=== PATIENT | female | born 1935 | race Caucasian/White ===

== ENCOUNTER 2017-01-01 09:39 | Inpatient (IN) | payer MEDICARE, OTHER ==
[~2017-01-01] VITALS: Ht 154.9 cm; Wt 71.8 kg
[~2017-01-01 09:39] MED LIST: ACET-2744 PO; ALEN70TA48 PO; AMLO-512 PO; ASPI-1093 PO; ATOR40TA28 PO; BACL10TA PO; CALC1TAB15 PO; DULO30CA2 PO; FURO40I IM; GABA-531 PO; HYDR25TA PO; ISOS60TA4 PO; LOSA100T8 PO; NITR0.4T27 SL; TYL3 PO
[2017-01-01] MEDS ORDERED: 0.9% SODIUM CHLORIDE 10 ML SYRINGE IVP PRN (11:00)
[2017-01-01] MEDS ORDERED: ACET-2247 PO (11:01)
[2017-01-01 11:09] LABS: BASOPHILS % (AUTO) 0.2 % (0.0-2.0); EOSINOPHILS % (AUTO) 0.5 % (1.0-6.0); HEMATOCRIT 42.8 % (36-46); HEMOGLOBIN 14.2 g/dL (12.0-16.0); LYMPHOCYTES # (AUTO) 0.8 K/uL (1.0-4.8); MEAN CORPUSCULAR HEMOGLOBIN 31.4 pg (26.0-34.0); MEAN CORPUSCULAR HGB CONC 33.2 G/dL (31.0-37.0); MEAN CORPUSCULAR VOLUME 95 fL (80-100); MONOCYTES # (AUTO) 0.8 K/uL (0.1-1.0); MONOCYTES % (AUTO) 12.9 % (2.0-9.0); NEUTROPHILS # (AUTO) 4.8 K/uL (1.8-7.7); NEUTROPHILS % (AUTO) 74.4 % (40.0-70.0); PLATELET COUNT (AUTO) 191 K/uL (150-450); RED BLOOD CELL COUNT(AUTO) 4.53 MIL/uL (4.00-5.20); RED CELL DISTRIBUTION WIDTH 13.4 % (11.5-14.5); WHITE BLOOD COUNT (AUTO) 6.4 K/uL (4.5-11.0)
[2017-01-01 11:23] LABS: CALCIUM, TOTAL 10.1 mg/dL (8.8-10.5); CREATININE 0.91 mg/dL (0.60-1.30); POTASSIUM 3.2 mmol/L (3.5-5.1)
[2017-01-01 11:24] LABS: PROTHROMBIN TIME 10.8 SEC (9.4-11.6)
[2017-01-01 11:31] LABS: ALBUMIN 3.7 g/dL (3.4-5.0); BILIRUBIN,TOTAL 0.6 mg/dL (0.1-1.0); TOTAL PROTEIN, SERUM 7.6 g/dL (6.4-8.2)
[2017-01-01 11:34] LABS: LACTIC ACID 1.1 mmol/L (0.4-2.0)
[2017-01-01 13:05] LABS: INFLUENZA TYPE B NEGATIVE FOR TYPE B (NEGATIVE)
[2017-01-01] MEDS ORDERED: ACETAMINOPHEN 1000 MG/ISO-OSM 100 ML IV ONE (13:15)
[2017-01-01 13:27] LABS: APPEARANCE,URINE CLOUDY (CLEAR); GLUCOSE, URINE (UA) NEGATIVE (NEGATIVE); KETONES,URINE NEGATIVE (NEGATIVE); LEUKOCYTE ESTERASE ,URINE TRACE (NEGATIVE); OCCULT BLOOD,URINE TRACE (NEGATIVE); PROTEIN,URINE TRACE (NEGATIVE)
[2017-01-01 13:43] LABS: ADD UA MICROSCOPIC YES
[2017-01-01 13:50] LABS: RBC,URINE 0-2 /HPF (0-2)
[2017-01-01] MEDS ORDERED: MAGNESIUM HYDROXIDE SUSPENSION 30 ML UDCUP PO PRN (16:30)
[2017-01-01] MEDS ORDERED: POTASSIUM CHL 10 MEQ/WATER 50 ML IV PRN (16:30)
[2017-01-01] MEDS ORDERED: POTASSIUM CHLORIDE 20 MEQ ER TABLET PO PRN (16:30)
[2017-01-01] MEDS ORDERED: ACETAMINOPHEN 325 MG TABLET PO PRN (16:30)
[2017-01-01] MEDS: CefTRIAXone 1 GM/DEXTROSE 50 ML IV SCH (17:40)
[2017-01-01] MEDS: OxyCODONE HCL/ACETAMINOPHEN 5-325 MG TABLET PO PRN (17:40)
[2017-01-01 18:12] VITALS: BP 124/50
[2017-01-01 20:03] VITALS: BP 110/53
[2017-01-01] MEDS: SIMVASTATIN 20 MG TABLET PO SCH (20:39)
[2017-01-01] MEDS: DOCUSATE SODIUM 100 MG CAPSULE PO SCH (20:39)
[2017-01-01] MEDS: HEPARIN SODIUM,PORCINE 5,000 UNITS/ML VIAL SQ SCH (23:18)
[2017-01-01 23:35] VITALS: BP 90/39
[2017-01-02 00:19] VITALS: BP 102/54
[2017-01-02 04:23] VITALS: BP 119/60
[2017-01-02] MEDS: ASPIRIN 81 MG CHEWABLE TABLET PO SCH (08:05)
[2017-01-02] MEDS: HEPARIN SODIUM,PORCINE 5,000 UNITS/ML VIAL SQ SCH ×3 (08:05→23:30)
[2017-01-02] MEDS: PANTOPRAZOLE SODIUM 40 MG DR TABLET PO SCH (08:06)
[2017-01-02] MEDS: DOCUSATE SODIUM 100 MG CAPSULE PO SCH ×2 (08:06→20:24)
[2017-01-02 08:24] VITALS: BP 131/58
[2017-01-02 11:18] VITALS: BP 120/58
[2017-01-02] MEDS: OxyCODONE HCL/ACETAMINOPHEN 5-325 MG TABLET PO PRN ×2 (12:11→17:17)
[2017-01-02 16:01] VITALS: BP 121/61
[2017-01-02] MEDS ORDERED: SODIUM CHLORIDE 0.9% 100 ML ONE (16:24)
[2017-01-02] MEDS: CefTRIAXone 1 GM/DEXTROSE 50 ML IV SCH (17:01)
[2017-01-02 19:44] VITALS: BP 111/58
[2017-01-02] MEDS: SIMVASTATIN 20 MG TABLET PO SCH (20:24)
[2017-01-03 00:25] VITALS: BP 139/63
[2017-01-03 04:15] VITALS: BP 110/69
[2017-01-03 07:09] VITALS: BP 128/66
[2017-01-03] MEDS: HEPARIN SODIUM,PORCINE 5,000 UNITS/ML VIAL SQ SCH ×2 (08:09→16:46)
[2017-01-03] MEDS: PANTOPRAZOLE SODIUM 40 MG DR TABLET PO SCH (08:09)
[2017-01-03] MEDS: ASPIRIN 81 MG CHEWABLE TABLET PO SCH (08:09)
[2017-01-03] MEDS: OxyCODONE HCL/ACETAMINOPHEN 5-325 MG TABLET PO PRN (08:09)
[2017-01-03] MEDS: DOCUSATE SODIUM 100 MG CAPSULE PO SCH (08:09)
[2017-01-03 10:43] VITALS: BP 120/57
[2017-01-03 15:08] VITALS: BP 129/62
[2017-01-03] MEDS ORDERED: PHEN-853 PO (15:12)
[2017-01-03] MEDS ORDERED: LEVO500 PO (15:12)
[2017-01-03] MEDS: CefTRIAXone 1 GM/DEXTROSE 50 ML IV SCH (17:24)
== END 2017-01-03 18:55 | disposition home or self-care (01) | DRG 690 ==
LOC: EMS 09:43 → 5N 16:33
PROVIDERS: ADMIT Internal Medicine; ATTEND Internal Medicine
DX: N39.0 Urinary tract infection, site not specified (principal); I25.10 Atherosclerotic heart disease of native coronary artery without angina pectoris; M19.90 Unspecified osteoarthritis, unspecified site; M81.0 Age-related osteoporosis without current pathological fracture; I11.9 Hypertensive heart disease without heart failure; Z96.659 Presence of unspecified artificial knee joint; Z79.899 Other long term (current) drug therapy; Z79.82 Long term (current) use of aspirin; Z95.1 Presence of aortocoronary bypass graft
CPT/HCPCS: 70450; 83605; 84132; 87086; 87804; 93005; 96365; 99285; J0131; J0696; J1644; J7050

== ENCOUNTER → 2017-03-21 | Outpatient (CLI) | payer MEDICARE, OTHER ==
[~2017-03-21] VITALS: Ht 144.8 cm; Wt 72.0 kg
[~2017-03-21] MED LIST changes: +ACET-2247 PO; -ACET-2744 PO; +LEVO500 PO; +PHEN-853 PO
[2017-03-21 14:48] VITALS: BP 113/51
== END | disposition home or self-care (01) ==
LOC: SRCNTR 14:30
PROVIDERS: ATTEND Internal Medicine Cardiovascular Disease
DX: I10 Essential (primary) hypertension (principal); I25.10 Atherosclerotic heart disease of native coronary artery without angina pectoris; M54.5 Low back pain; E11.65 Type 2 diabetes mellitus with hyperglycemia; M19.90 Unspecified osteoarthritis, unspecified site; E78.5 Hyperlipidemia, unspecified; M48.8X6 Other specified spondylopathies, lumbar region; Z95.1 Presence of aortocoronary bypass graft
CPT/HCPCS: G0463

== ENCOUNTER → 2017-06-20 | Outpatient (CLI) | payer MEDICARE, OTHER ==
[~2017-06-20] VITALS: Ht 144.8 cm; Wt 72.0 kg
[~2017-06-20] MED LIST changes: -DULO30CA2 PO; -LEVO500 PO; -PHEN-853 PO
[2017-06-20 14:08] VITALS: BP 134/65
== END | disposition home or self-care (01) ==
LOC: SRCNTR 14:01
PROVIDERS: ATTEND Internal Medicine Cardiovascular Disease
DX: J44.9 Chronic obstructive pulmonary disease, unspecified (principal); E11.9 Type 2 diabetes mellitus without complications; E78.5 Hyperlipidemia, unspecified; G47.30 Sleep apnea, unspecified; M19.90 Unspecified osteoarthritis, unspecified site; I10 Essential (primary) hypertension; I25.10 Atherosclerotic heart disease of native coronary artery without angina pectoris; Z79.82 Long term (current) use of aspirin; Z95.1 Presence of aortocoronary bypass graft
CPT/HCPCS: G0463

== ENCOUNTER → 2017-08-22 | Outpatient (CLI) | payer MEDICARE, OTHER ==
[~2017-08-22] VITALS: Ht 144.8 cm; Wt 74.0 kg
[~2017-08-22] MED LIST changes: +AMOX1TAB15 PO; -ASPI-1093 PO; +ASPI-1182 PO; +DULO30CA2 PO; +FAMO20 PO; +FLUT110HFA IH; +FLUTICASONE; +FURO40 PO; +HYDR-3290 PO; +LEVO500 PO; +LOSA100T2 PO; -LOSA100T8 PO; +METO-296 PO; +MONT10TA21 PO; -NITR0.4T27 SL; +NITR0.4T50 SL; +PRAM0.258 PO; +PRED10 PO
[2017-08-22 15:02] VITALS: BP 163/76
== END | disposition home or self-care (01) ==
LOC: SRCNTR 14:43
PROVIDERS: ATTEND Internal Medicine Cardiovascular Disease
DX: J44.9 Chronic obstructive pulmonary disease, unspecified (principal); E11.9 Type 2 diabetes mellitus without complications; E78.5 Hyperlipidemia, unspecified; G47.30 Sleep apnea, unspecified; I10 Essential (primary) hypertension; I25.10 Atherosclerotic heart disease of native coronary artery without angina pectoris; M54.5 Low back pain; M19.90 Unspecified osteoarthritis, unspecified site; Z79.82 Long term (current) use of aspirin; Z95.1 Presence of aortocoronary bypass graft
CPT/HCPCS: G0463

== ENCOUNTER → 2017-09-02 | Outpatient (CLI) | payer MEDICARE, OTHER ==
[2017-09-02 10:54] LABS: BASOPHILS # (AUTO) 0.02 K/uL (0.00-0.20); BASOPHILS % (AUTO) 0.4 % (0.0-2.0); EOSINOPHILS # (AUTO) 0.08 K/uL (0.00-0.70); HEMATOCRIT 40.6 % (36-46); HEMOGLOBIN 13.9 g/dL (12.0-16.0); LYMPHOCYTES # (AUTO) 1.7 K/uL (1.0-4.8); LYMPHOCYTES % (AUTO) 32.7 % (22.0-44.0); MEAN CORPUSCULAR HEMOGLOBIN 32.2 pg (26.0-34.0); MEAN CORPUSCULAR HGB CONC 34.3 G/dL (31.0-37.0); MEAN CORPUSCULAR VOLUME 94 fL (80-100); MONOCYTES # (AUTO) 0.4 K/uL (0.1-1.0); MONOCYTES % (AUTO) 6.9 % (2.0-9.0); NEUTROPHILS # (AUTO) 3.1 K/uL (1.8-7.7); NEUTROPHILS % (AUTO) 58.5 % (40.0-70.0); PLATELET COUNT (AUTO) 209 K/uL (150-450); RED BLOOD CELL COUNT(AUTO) 4.32 MIL/uL (4.00-5.20); RED CELL DISTRIBUTION WIDTH 13.9 % (11.5-14.5); WHITE BLOOD COUNT (AUTO) 5.3 K/uL (4.5-11.0)
[2017-09-02 11:05] LABS: HEMOGLOBIN A1C 6.7 % (4.5-6.2)
[2017-09-02 13:42] LABS: ALANINE AMINOTRANSFERASE 23 U/L (12-78); ALBUMIN 3.5 g/dL (3.4-5.0); ANION GAP 8 mmol/L (8-16); ASPARTATE AMINOTRANSFERASE 25 U/L (15-37); BILIRUBIN,TOTAL 0.6 mg/dL (0.1-1.0); CALCIUM, TOTAL 9.2 mg/dL (8.8-10.5); CARBON DIOXIDE 29 mmol/L (22-29); CHLORIDE 102 mmol/L (98-107); CHOL/HDL RATIO 3.5 (3.9-5.7); CREATININE 0.88 mg/dL (0.60-1.30); GLOMERULAR FILTR. RATE CALC > 60 mL/min (>60); POTASSIUM 4.3 mmol/L (3.5-5.1); SODIUM SERUM 139 mmol/L (136-145); TOTAL PROTEIN, SERUM 6.8 g/dL (6.4-8.2); UREA NITROGEN, BLOOD 10 mg/dL (7-18)
== END | disposition home or self-care (01) ==
LOC: LABPV 07:56
PROVIDERS: ATTEND Internal Medicine Cardiovascular Disease
DX: E11.9 Type 2 diabetes mellitus without complications (principal); I10 Essential (primary) hypertension; E78.5 Hyperlipidemia, unspecified; I25.10 Atherosclerotic heart disease of native coronary artery without angina pectoris
CPT/HCPCS: 83036

== ENCOUNTER → 2017-10-22 | Outpatient (CLI) | payer MEDICARE, OTHER ==
[~2017-10-22] VITALS: Ht 144.8 cm; Wt 74.0 kg
[2017-10-22 15:19] VITALS: BP 114/51
== END | disposition home or self-care (01) ==
LOC: SRCNTR 15:11
PROVIDERS: ATTEND Internal Medicine Cardiovascular Disease
DX: I10 Essential (primary) hypertension (principal); E11.9 Type 2 diabetes mellitus without complications; E78.5 Hyperlipidemia, unspecified; G47.30 Sleep apnea, unspecified; I25.10 Atherosclerotic heart disease of native coronary artery without angina pectoris; Z95.1 Presence of aortocoronary bypass graft; M19.90 Unspecified osteoarthritis, unspecified site; J44.9 Chronic obstructive pulmonary disease, unspecified; Z79.82 Long term (current) use of aspirin; Z96.659 Presence of unspecified artificial knee joint
CPT/HCPCS: G0463

== ENCOUNTER 2017-10-28 12:38 | Inpatient (IN) | payer MEDICARE, OTHER ==
[~2017-10-28] VITALS: Ht 147.3 cm; Wt 71.9 kg
[~2017-10-28 12:38] MED LIST changes: -AMOX1TAB15 PO; -FURO40 PO; -HYDR-3290 PO
[2017-10-28] MEDS ORDERED: AMOX1TAB15 PO (12:43)
[2017-10-28] MEDS ORDERED: HYDR-3290 PO (12:43)
[2017-10-28 14:57] LABS: APPEARANCE,URINE CLOUDY (CLEAR); GLUCOSE, URINE (UA) NEGATIVE (NEGATIVE); KETONES,URINE NEGATIVE (NEGATIVE); LEUKOCYTE ESTERASE ,URINE NEGATIVE (NEGATIVE); OCCULT BLOOD,URINE NEGATIVE (NEGATIVE); PH,URINE 6.5 (5.0-8.0); PROTEIN,URINE NEGATIVE (NEGATIVE)
[2017-10-28 15:02] LABS: ADD UA MICROSCOPIC NO
[2017-10-28 15:28] LABS: BASOPHILS % (AUTO) 0.3 % (0.0-2.0); EOSINOPHILS % (AUTO) 3.3 % (1.0-6.0); HEMATOCRIT 41.7 % (36-46); HEMOGLOBIN 14.3 g/dL (12.0-16.0); LYMPHOCYTES # (AUTO) 1.7 K/uL (1.0-4.8); LYMPHOCYTES % (AUTO) 29.1 % (22.0-44.0); MEAN CORPUSCULAR HEMOGLOBIN 32.7 pg (26.0-34.0); MEAN CORPUSCULAR HGB CONC 34.3 G/dL (31.0-37.0); MEAN CORPUSCULAR VOLUME 95 fL (80-100); MONOCYTES # (AUTO) 0.4 K/uL (0.1-1.0); MONOCYTES % (AUTO) 7.6 % (2.0-9.0); NEUTROPHILS # (AUTO) 3.4 K/uL (1.8-7.7); NEUTROPHILS % (AUTO) 59.7 % (40.0-70.0); PLATELET COUNT (AUTO) 248 K/uL (150-450); RED BLOOD CELL COUNT(AUTO) 4.38 MIL/uL (4.00-5.20); RED CELL DISTRIBUTION WIDTH 13.3 % (11.5-14.5); WHITE BLOOD COUNT (AUTO) 5.7 K/uL (4.5-11.0)
[2017-10-28] MEDS ORDERED: FURO40 PO (15:37)
[2017-10-28] MEDS ORDERED: BISACODYL 10 MG RECTAL RECTAL SUPPOSITORY PR PRN (15:45)
[2017-10-28] MEDS ORDERED: ACETAMINOPHEN 325 MG TABLET PO PRN (15:45)
[2017-10-28] MEDS ORDERED: ALBUTEROL SULFATE 2.5 MG/0.5 ML NEB SOLUTION NEB PRN (15:45)
[2017-10-28 15:48] LABS: LACTIC ACID 1.3 mmol/L (0.4-2.0)
[2017-10-28 15:50] LABS: B-TYPE NATRIURETIC PEPTIDE 126 pg/mL (0-100)
[2017-10-28 15:51] LABS: TROPONIN I < 0.02 ng/mL (0.00-0.05)
[2017-10-28 15:52] LABS: ANION GAP 7 mmol/L (8-16); CALCIUM, TOTAL 9.9 mg/dL (8.8-10.5); CARBON DIOXIDE 33 mmol/L (22-29); CHLORIDE 100 mmol/L (98-107); CREATININE 0.98 mg/dL (0.60-1.30); GLOMERULAR FILTR. RATE CALC 54 mL/min (>60); POTASSIUM 3.7 mmol/L (3.5-5.1); SODIUM SERUM 140 mmol/L (136-145); UREA NITROGEN, BLOOD 13 mg/dL (7-18)
[2017-10-28 15:57] LABS: ALANINE AMINOTRANSFERASE 29 U/L (12-78); ALBUMIN 3.6 g/dL (3.4-5.0); ASPARTATE AMINOTRANSFERASE 30 U/L (15-37); BILIRUBIN,TOTAL 0.8 mg/dL (0.1-1.0); TOTAL PROTEIN, SERUM 7.6 g/dL (6.4-8.2)
[2017-10-28 16:00] LABS: AMMONIA 12 umol/L (11-32)
[2017-10-28] MEDS: AmLODIPine BESYLATE 5 MG TABLET PO SCH (16:20)
[2017-10-28 18:03] VITALS: BP 156/74
[2017-10-28 21:00] VITALS: BP 148/74
[2017-10-28] MEDS ORDERED: ATORVASTATIN CALCIUM 20 MG TABLET PO SCH (21:00)
[2017-10-28] MEDS: DOCUSATE SODIUM 100 MG CAPSULE PO SCH (21:29)
[2017-10-28] MEDS: HEPARIN SODIUM,PORCINE 5,000 UNITS/ML VIAL SQ SCH (21:29)
[2017-10-29 00:21] VITALS: BP 144/76
[2017-10-29 04:31] VITALS: BP 117/56
[2017-10-29 07:18] VITALS: BP 146/71
[2017-10-29] MEDS: DOCUSATE SODIUM 100 MG CAPSULE PO SCH (08:24)
[2017-10-29] MEDS: AmLODIPine BESYLATE 5 MG TABLET PO SCH (08:24)
[2017-10-29] MEDS: HEPARIN SODIUM,PORCINE 5,000 UNITS/ML VIAL SQ SCH (08:25)
[2017-10-29] MEDS ORDERED: AmLODIPine BESYLATE 5 MG TABLET PO SCH (09:00)
[2017-10-29] MEDS ORDERED: PANTOPRAZOLE SODIUM 40 MG DR TABLET PO SCH (09:00)
[2017-10-29] MEDS ORDERED: ASPIRIN 81 MG CHEWABLE TABLET PO SCH (09:00)
[2017-10-29 11:31] VITALS: BP 133/50
[2017-10-29] MEDS ORDERED: OXYGEN THERAPY IH SCH (20:00)
== END 2017-10-29 13:05 | disposition home or self-care (01) | DRG 93 ==
LOC: EMS 12:40 → 6N 17:26
PROVIDERS: ADMIT Internal Medicine; ATTEND Internal Medicine
DX: G92 Toxic encephalopathy (principal); Z95.1 Presence of aortocoronary bypass graft; E66.9 Obesity, unspecified; I25.10 Atherosclerotic heart disease of native coronary artery without angina pectoris; M19.90 Unspecified osteoarthritis, unspecified site; Z96.659 Presence of unspecified artificial knee joint; T50.905A Adverse effect of unspecified drugs, medicaments and biological substances, initial encounter; Y92.89 Other specified places as the place of occurrence of the external cause; Z83.3 Family history of diabetes mellitus; Z82.49 Family history of ischemic heart disease and other diseases of the circulatory system; Z68.33 Body mass index [BMI] 33.0-33.9, adult; Z79.899 Other long term (current) drug therapy
CPT/HCPCS: 70450; 71020; 83605; 87040; 93005; 99285; G0480; J1644

== ENCOUNTER → 2017-12-24 | Outpatient (CLI) | payer MEDICARE, OTHER ==
[~2017-12-24] VITALS: Ht 144.8 cm; Wt 72.0 kg
[~2017-12-24] MED LIST changes: +ALBU8HFA4 IH; -BACL10TA PO; -FLUTICASONE; +FURO40 PO; -FURO40I IM; -GABA-531 PO; -LEVO500 PO; -LOSA100T2 PO; +LOSA100T29 PO; -METO-296 PO; -MONT10TA21 PO; -NITR0.4T50 SL; -PRED10 PO; +TIMO10DR28 OU; -TYL3 PO
[2017-12-24 14:42] VITALS: BP 115/57
== END | disposition home or self-care (01) ==
LOC: SRCNTR 14:31
PROVIDERS: ATTEND Internal Medicine Cardiovascular Disease
DX: I25.10 Atherosclerotic heart disease of native coronary artery without angina pectoris (principal); E11.9 Type 2 diabetes mellitus without complications; E78.5 Hyperlipidemia, unspecified; G47.30 Sleep apnea, unspecified; I10 Essential (primary) hypertension; J44.9 Chronic obstructive pulmonary disease, unspecified; M19.90 Unspecified osteoarthritis, unspecified site; Z79.82 Long term (current) use of aspirin; Z95.1 Presence of aortocoronary bypass graft
CPT/HCPCS: 93005; G0463

== ENCOUNTER → 2018-02-25 | Outpatient (CLI) | payer MEDICARE, OTHER ==
[~2018-02-25] VITALS: Ht 144.8 cm; Wt 75.0 kg
[2018-02-25 13:50] VITALS: BP 143/65
== END | disposition home or self-care (01) ==
LOC: SRCNTR 13:43
PROVIDERS: ATTEND Internal Medicine Cardiovascular Disease
DX: I10 Essential (primary) hypertension (principal); E11.9 Type 2 diabetes mellitus without complications; E78.5 Hyperlipidemia, unspecified; G47.30 Sleep apnea, unspecified; I25.10 Atherosclerotic heart disease of native coronary artery without angina pectoris; J44.9 Chronic obstructive pulmonary disease, unspecified; Z79.82 Long term (current) use of aspirin; Z95.1 Presence of aortocoronary bypass graft; Z96.652 Presence of left artificial knee joint
CPT/HCPCS: G0463

== ENCOUNTER → 2018-04-28 | Outpatient (CLI) | payer MEDICARE, OTHER ==
[~2018-04-28] VITALS: Ht 144.8 cm; Wt 72.0 kg
[2018-04-28 10:18] VITALS: BP 162/80
== END | disposition home or self-care (01) ==
LOC: SRCNTR 10:10
PROVIDERS: ATTEND Internal Medicine Cardiovascular Disease
DX: I10 Essential (primary) hypertension (principal); E11.9 Type 2 diabetes mellitus without complications; E78.5 Hyperlipidemia, unspecified; G47.30 Sleep apnea, unspecified; I25.10 Atherosclerotic heart disease of native coronary artery without angina pectoris; J44.9 Chronic obstructive pulmonary disease, unspecified; Z79.82 Long term (current) use of aspirin; Z95.1 Presence of aortocoronary bypass graft
CPT/HCPCS: G0463

== ENCOUNTER → 2018-06-26 | Outpatient (CLI) | payer MEDICARE, OTHER ==
[~2018-06-26] VITALS: Ht 144.8 cm; Wt 72.0 kg
[~2018-06-26] MED LIST changes: -ACET-2247 PO; -ALBU8HFA4 IH; -ALEN70TA48 PO; -CALC1TAB15 PO; -DULO30CA2 PO; -FAMO20 PO; -FLUT110HFA IH; -FURO40 PO; -HYDR25TA PO; -LOSA100T29 PO; +METF500T6 PO; +POTA8TAB4 PO; -PRAM0.258 PO; -TIMO10DR28 OU
[2018-06-26 15:13] VITALS: BP 115/69
== END | disposition home or self-care (01) ==
LOC: SRCNTR 15:09
PROVIDERS: ATTEND Internal Medicine Cardiovascular Disease
DX: I25.10 Atherosclerotic heart disease of native coronary artery without angina pectoris (principal); I10 Essential (primary) hypertension; E11.9 Type 2 diabetes mellitus without complications; E78.5 Hyperlipidemia, unspecified; R42 Dizziness and giddiness; Z90.710 Acquired absence of both cervix and uterus
CPT/HCPCS: G0463

== ENCOUNTER → 2018-10-09 | Outpatient (CLI) | payer MEDICARE, OTHER ==
[~2018-10-09] VITALS: Ht 144.8 cm; Wt 74.5 kg
[~2018-10-09] MED LIST changes: +BIMA12.5OS OU; +BRIM15DR8 OU; +DORZ1DRO7 OU; +METF-960 PO; -METF500T6 PO
[2018-10-09 14:35] VITALS: BP 128/48
== END | disposition home or self-care (01) ==
LOC: SRCNTR 14:15
PROVIDERS: ATTEND Internal Medicine Cardiovascular Disease
DX: I25.10 Atherosclerotic heart disease of native coronary artery without angina pectoris (principal); E11.9 Type 2 diabetes mellitus without complications; I10 Essential (primary) hypertension; E78.5 Hyperlipidemia, unspecified; J44.9 Chronic obstructive pulmonary disease, unspecified; G47.30 Sleep apnea, unspecified; R42 Dizziness and giddiness; M19.90 Unspecified osteoarthritis, unspecified site; Z95.1 Presence of aortocoronary bypass graft
CPT/HCPCS: G0463

== ENCOUNTER → 2018-12-18 | Outpatient (CLI) | payer MEDICARE, OTHER ==
[~2018-12-18] VITALS: Ht 147.3 cm; Wt 75.0 kg
[2018-12-18 14:26] VITALS: BP 125/56
== END | disposition home or self-care (01) ==
LOC: SRCNTR 14:16
PROVIDERS: ATTEND Internal Medicine Cardiovascular Disease
DX: I25.10 Atherosclerotic heart disease of native coronary artery without angina pectoris (principal); I11.0 Hypertensive heart disease with heart failure; I50.9 Heart failure, unspecified; E11.9 Type 2 diabetes mellitus without complications; E78.5 Hyperlipidemia, unspecified
CPT/HCPCS: G0463

== ENCOUNTER → 2019-02-05 | Outpatient (CLI) | payer MEDICARE, OTHER ==
[2019-02-05 14:31] VITALS: BP 126/57
== END | disposition home or self-care (01) ==
LOC: SRCNTR 14:23
PROVIDERS: ATTEND Internal Medicine Cardiovascular Disease
DX: E78.5 Hyperlipidemia, unspecified (principal); I25.10 Atherosclerotic heart disease of native coronary artery without angina pectoris; J44.9 Chronic obstructive pulmonary disease, unspecified; M54.5 Low back pain; I10 Essential (primary) hypertension; E11.9 Type 2 diabetes mellitus without complications
CPT/HCPCS: G0463

== ENCOUNTER → 2019-10-02 | Outpatient (CLI) | payer MEDICARE, OTHER ==
[~2019-10-02] VITALS: Ht 144.8 cm; Wt 69.0 kg
[~2019-10-02] MED LIST changes: +ACET-66 PO; +ACET1TAB12 PO; +ALEN70SO3 PO; -AMLO-512 PO; +AMLO10TA7 PO; +FLUT250D2 IH; +FURO20 PO; +GABA-531 PO; +LIDO1ADH63 TP; +NITR0.4T50 SL; -POTA8TAB4 PO; +PRAM0.258 PO
[2019-10-02 11:20] VITALS: BP 113/57
== END | disposition home or self-care (01) ==
LOC: SRCNTR 11:19
PROVIDERS: ATTEND Internal Medicine Cardiovascular Disease
DX: J44.9 Chronic obstructive pulmonary disease, unspecified (principal); I25.10 Atherosclerotic heart disease of native coronary artery without angina pectoris; M54.5 Low back pain; I10 Essential (primary) hypertension; E11.9 Type 2 diabetes mellitus without complications; E78.5 Hyperlipidemia, unspecified; G47.30 Sleep apnea, unspecified; Z79.82 Long term (current) use of aspirin; Z79.84 Long term (current) use of oral hypoglycemic drugs; Z79.899 Other long term (current) drug therapy
CPT/HCPCS: G0463

== ENCOUNTER → 2019-12-04 | Outpatient (CLI) | payer MEDICARE, OTHER ==
[~2019-12-04] VITALS: Ht 144.8 cm; Wt 69.0 kg
[2019-12-04 10:46] VITALS: BP 129/49
== END | disposition home or self-care (01) ==
LOC: SRCNTR 10:46
PROVIDERS: ATTEND Internal Medicine Cardiovascular Disease
DX: J44.9 Chronic obstructive pulmonary disease, unspecified (principal); I25.10 Atherosclerotic heart disease of native coronary artery without angina pectoris; I10 Essential (primary) hypertension; E11.9 Type 2 diabetes mellitus without complications; E78.5 Hyperlipidemia, unspecified
CPT/HCPCS: G0463

== ENCOUNTER → 2020-05-20 | Outpatient (CLI) | payer MEDICARE, OTHER ==
[~2020-05-20] MED LIST changes: +AMLO-258 PO; -AMLO10TA7 PO; +ASPI-1111 PO; -ASPI-1182 PO; +GABA-1181 PO; -GABA-531 PO
== END | disposition home or self-care (01) ==
LOC: SRCNTR 11:03
PROVIDERS: ATTEND Internal Medicine Cardiovascular Disease
DX: J44.9 Chronic obstructive pulmonary disease, unspecified (principal); I25.10 Atherosclerotic heart disease of native coronary artery without angina pectoris; E11.9 Type 2 diabetes mellitus without complications; E78.5 Hyperlipidemia, unspecified
CPT/HCPCS: Q3014

== ENCOUNTER → 2020-07-15 | Outpatient (CLI) | payer MEDICARE, OTHER ==
[~2020-07-15] VITALS: Ht 144.8 cm; Wt 66.3 kg
[2020-07-15 10:40] VITALS: BP 132/56
== END | disposition home or self-care (01) ==
LOC: SRCNTR 10:39
PROVIDERS: ATTEND Internal Medicine Cardiovascular Disease
DX: J44.9 Chronic obstructive pulmonary disease, unspecified (principal); I10 Essential (primary) hypertension; I25.10 Atherosclerotic heart disease of native coronary artery without angina pectoris; E11.9 Type 2 diabetes mellitus without complications; E78.5 Hyperlipidemia, unspecified; G47.30 Sleep apnea, unspecified; Z95.1 Presence of aortocoronary bypass graft; Z79.82 Long term (current) use of aspirin; Z79.899 Other long term (current) drug therapy
CPT/HCPCS: G0463; Z7500

== ENCOUNTER 2020-08-27 09:11 | Emergency (ER) | payer MEDICARE, OTHER ==
[~2020-08-27] VITALS: Ht 152.4 cm; Wt 68.2 kg
[~2020-08-27 09:11] MED LIST changes: +ACET-2080 PO; -ACET1TAB12 PO
[2020-08-27] MEDS ORDERED: FURO20 PO (09:32)
[2020-08-27] MEDS ORDERED: DENO60DI SQ (09:32)
[2020-08-27 09:44] LABS: GLUCOSE,POINT OF CARE 191 MG/DL (70-110)
[2020-08-27] MEDS ORDERED: ACETAMINOPHEN 500 MG TABLET PO ONE (11:15)
[2020-08-27] MEDS ORDERED: IBUPROFEN 600 MG TABLET PO ONE (12:30)
[2020-08-27 12:55] VITALS: BP 168/84
== END 2020-08-27 12:58 | disposition home or self-care (01) ==
LOC: EMS 09:13
DX: S09.90XA Unspecified injury of head, initial encounter (principal); M54.2 Cervicalgia; M25.551 Pain in right hip; I25.10 Atherosclerotic heart disease of native coronary artery without angina pectoris; E11.9 Type 2 diabetes mellitus without complications; I11.9 Hypertensive heart disease without heart failure; E78.00 Pure hypercholesterolemia, unspecified; Z79.899 Other long term (current) drug therapy; Z79.84 Long term (current) use of oral hypoglycemic drugs; W10.9XXA Fall (on) (from) unspecified stairs and steps, initial encounter; Y93.01 Activity, walking, marching and hiking; Y92.89 Other specified places as the place of occurrence of the external cause; Y99.8 Other external cause status
CPT/HCPCS: 70450; 71250; 72125; 73502

== ENCOUNTER → 2020-09-16 | Outpatient (CLI) | payer MEDICARE, OTHER ==
[~2020-09-16] VITALS: Ht 144.8 cm; Wt 67.0 kg
[~2020-09-16] MED LIST changes: -ACET-2080 PO; -ACET-66 PO; -ALEN70SO3 PO; +DENO60DI SQ
[2020-09-16 09:58] VITALS: BP 137/52
== END | disposition home or self-care (01) ==
LOC: SRCNTR 09:57
PROVIDERS: ATTEND Internal Medicine Cardiovascular Disease
DX: R94.31 Abnormal electrocardiogram [ECG] [EKG] (principal); I25.10 Atherosclerotic heart disease of native coronary artery without angina pectoris; E11.9 Type 2 diabetes mellitus without complications; I10 Essential (primary) hypertension; E78.5 Hyperlipidemia, unspecified; J44.9 Chronic obstructive pulmonary disease, unspecified; G47.30 Sleep apnea, unspecified; R00.1 Bradycardia, unspecified
CPT/HCPCS: 93005; G0463

== ENCOUNTER 2020-10-28 10:56 | Inpatient (IN) | payer MEDICARE, OTHER ==
[~2020-10-28] VITALS: Ht 142.2 cm; Wt 68.5 kg
[~2020-10-28 10:56] MED LIST changes: -FLUT250D2 IH; -PRAM0.258 PO
[2020-10-28] MEDS ORDERED: HYDR-4396 PO (11:02)
[2020-10-28] MEDS ORDERED: PRAM0.258 PO (11:02)
[2020-10-28 13:11] LABS: BASOPHILS % (AUTO) 0.3 % (0.0-2.0); EOSINOPHILS % (AUTO) 1.3 % (1.0-6.0); HEMATOCRIT 42.5 % (36-46); HEMOGLOBIN 14.4 g/dL (12.0-16.0); LYMPHOCYTES # (AUTO) 1.5 K/uL (1.0-4.8); LYMPHOCYTES % (AUTO) 20.5 % (22.0-44.0); MEAN CORPUSCULAR HEMOGLOBIN 33.4 pg (26.0-34.0); MEAN CORPUSCULAR VOLUME 98 fL (80-100); MONOCYTES # (AUTO) 0.5 K/uL (0.1-1.0); MONOCYTES % (AUTO) 6.9 % (2.0-9.0); NEUTROPHILS # (AUTO) 5.2 K/uL (1.8-7.7); PLATELET COUNT (AUTO) 186 K/uL (150-450); RED BLOOD CELL COUNT(AUTO) 4.32 MIL/uL (4.00-5.20)
[2020-10-28 13:19] LABS: ANION GAP 7 mmol/L (8-16); CALCIUM, TOTAL 9.3 mg/dL (8.8-10.5); CARBON DIOXIDE 30 mmol/L (22-29); CHLORIDE 102 mmol/L (98-107); CREATININE 0.71 mg/dL (0.60-1.30); GLUCOSE,RANDOM 96 mg/dL (70-110); POTASSIUM 4.4 mmol/L (3.5-5.1); SODIUM SERUM 139 mmol/L (136-145); UREA NITROGEN, BLOOD 21 mg/dL (7-18)
[2020-10-28 13:20] LABS: GLOMERULAR FILTR. RATE CALC > 60 mL/min (>60)
[2020-10-28 13:34] LABS: B-TYPE NATRIURETIC PEPTIDE 133 pg/mL (0-100)
[2020-10-28 13:39] LABS: PROTHROMBIN TIME 10.3 SEC (9.4-11.6)
[2020-10-28 13:45] LABS: ALANINE AMINOTRANSFERASE 23 U/L (12-78); ALBUMIN 3.5 g/dL (3.4-5.0); ALKALINE PHOSPHATASE 63 U/L (46-116); ASPARTATE AMINOTRANSFERASE 27 U/L (15-37); BILIRUBIN,TOTAL 0.8 mg/dL (0.1-1.0); CREATINE KINASE, TOTAL ONLY 160 U/L (26-192); TOTAL PROTEIN, SERUM 6.8 g/dL (6.4-8.2)
[2020-10-28] MEDS ORDERED: INSULIN LISPRO 100 UNITS/ML SQ PRN (14:00)
[2020-10-28] MEDS ORDERED: ALBUTEROL SULFATE 2.5 MG/0.5 ML NEB SOLUTION NEB PRN (14:00)
[2020-10-28] MEDS ORDERED: ACETAMINOPHEN 325 MG TABLET PO PRN (14:00)
[2020-10-28] MEDS ORDERED: DEXTROSE 50%-WATER 25 GM/50 ML SYRINGE IVP PRN (14:00)
[2020-10-28 14:08] LABS: COVID AG,FIA SOURCE NASOPHARYNGEAL
[2020-10-28] MEDS ORDERED: LIDO700A15 TP (14:12)
[2020-10-28] MEDS: HEPARIN SODIUM,PORCINE 5,000 UNITS/ML VIAL SQ SCH ×2 (15:14→23:21)
[2020-10-28 20:24] LABS: GLUCOSE,POINT OF CARE 153 MG/DL (70-110)
[2020-10-28 22:10] VITALS: BP_SYST 132; BP_SYST 142; BP_DIAS 65; BP_DIAS 74
[2020-10-28] MEDS: DOCUSATE SODIUM 100 MG CAPSULE PO SCH (23:20)
[2020-10-28] MEDS: ATORVASTATIN CALCIUM 40 MG TABLET PO SCH (23:20)
[2020-10-28] MEDS: CARVEDILOL 6.25 MG TABLET PO SCH (23:21)
[2020-10-29 00:05] VITALS: BP 139/64
[2020-10-29 00:30] LABS: GLUCOMETER DEV NAME(LOC) 5N.1; GLUCOSE,POINT OF CARE 135 MG/DL (70-110)
[2020-10-29 04:20] VITALS: BP 129/59
[2020-10-29 07:51] LABS: GLUCOMETER DEV NAME(LOC) 5N.1; GLUCOSE,POINT OF CARE 107 MG/DL (70-110)
[2020-10-29 08:11] VITALS: BP 141/70
[2020-10-29] MEDS: LISINOPRIL 10 MG TABLET PO SCH (08:56)
[2020-10-29] MEDS: FAMOTIDINE 20 MG TABLET PO SCH (08:56)
[2020-10-29] MEDS: FUROSEMIDE 20 MG TABLET PO SCH (08:56)
[2020-10-29] MEDS: HEPARIN SODIUM,PORCINE 5,000 UNITS/ML VIAL SQ SCH ×2 (08:56→16:07)
[2020-10-29] MEDS: DOCUSATE SODIUM 100 MG CAPSULE PO SCH ×2 (08:56→20:40)
[2020-10-29] MEDS: CARVEDILOL 6.25 MG TABLET PO SCH ×2 (08:56→20:38)
[2020-10-29] MEDS: ASPIRIN 81 MG CHEWABLE TABLET PO SCH (08:56)
[2020-10-29 11:24] VITALS: BP 144/67
[2020-10-29 16:20] VITALS: BP 130/61
[2020-10-29 20:04] VITALS: BP 132/61
[2020-10-29] MEDS: ATORVASTATIN CALCIUM 40 MG TABLET PO SCH (20:40)
[2020-10-29 21:00] LABS: GLUCOMETER DEV NAME(LOC) 5N.1; GLUCOSE,POINT OF CARE 149 MG/DL (70-110)
[2020-10-29 21:00] LABS: GLUCOMETER DEV NAME(LOC) 5N.1; GLUCOSE,POINT OF CARE 121 MG/DL (70-110)
[2020-10-29 21:00] LABS: GLUCOMETER DEV NAME(LOC) 5N.1; GLUCOSE,POINT OF CARE 122 MG/DL (70-110)
[2020-10-30 00:19] VITALS: BP 119/51
[2020-10-30] MEDS: HEPARIN SODIUM,PORCINE 5,000 UNITS/ML VIAL SQ SCH ×2 (00:28→08:09)
[2020-10-30 04:48] VITALS: BP 125/54
[2020-10-30 07:24] LABS: GLUCOMETER DEV NAME(LOC) 5N.1; GLUCOSE,POINT OF CARE 102 MG/DL (70-110)
[2020-10-30] MEDS: ASPIRIN 81 MG CHEWABLE TABLET PO SCH (08:09)
[2020-10-30] MEDS: CARVEDILOL 6.25 MG TABLET PO SCH (08:09)
[2020-10-30] MEDS: FAMOTIDINE 20 MG TABLET PO SCH (08:09)
[2020-10-30] MEDS: LISINOPRIL 10 MG TABLET PO SCH (08:10)
[2020-10-30] MEDS: FUROSEMIDE 20 MG TABLET PO SCH (08:10)
[2020-10-30] MEDS: DOCUSATE SODIUM 100 MG CAPSULE PO SCH (08:10)
[2020-10-30 08:55] VITALS: BP 130/56
[2020-10-30 11:13] VITALS: BP 117/54
[2020-10-30 18:02] LABS: GLUCOMETER DEV NAME(LOC) 5N.1; GLUCOSE,POINT OF CARE 145 MG/DL (70-110)
== END 2020-10-30 16:00 | disposition home or self-care (01) | DRG 313 ==
LOC: EMS 11:00 → 5N 17:54
PROVIDERS: ADMIT Internal Medicine; ATTEND Internal Medicine
DX: R07.89 Other chest pain (principal); S80.02XA Contusion of left knee, initial encounter; E11.9 Type 2 diabetes mellitus without complications; E66.9 Obesity, unspecified; E78.00 Pure hypercholesterolemia, unspecified; I25.10 Atherosclerotic heart disease of native coronary artery without angina pectoris; I50.9 Heart failure, unspecified; J84.10 Pulmonary fibrosis, unspecified; W18.39XA Other fall on same level, initial encounter; Y93.01 Activity, walking, marching and hiking; I11.0 Hypertensive heart disease with heart failure; M19.90 Unspecified osteoarthritis, unspecified site; Z20.828 Contact with and (suspected) exposure to other viral communicable diseases; Z96.659 Presence of unspecified artificial knee joint; M25.562 Pain in left knee; Z68.33 Body mass index [BMI] 33.0-33.9, adult; Z82.49 Family history of ischemic heart disease and other diseases of the circulatory system; Z95.1 Presence of aortocoronary bypass graft; Z83.3 Family history of diabetes mellitus; Y92.091 Bathroom in other non-institutional residence as the place of occurrence of the external cause; Y99.8 Other external cause status; Z79.899 Other long term (current) drug therapy; Z79.82 Long term (current) use of aspirin
CPT/HCPCS: 87426; 93005; 93306; 97161; 97530; J1644; 36415-L1; 36415-TC; 71045-TC; U0003

== ENCOUNTER → 2020-12-02 | Outpatient (CLI) | payer MEDICARE, OTHER ==
[~2020-12-02] VITALS: Ht 144.8 cm; Wt 68.0 kg
[~2020-12-02] MED LIST changes: -FURO20 PO; -ISOS60TA4 PO; -LIDO1ADH63 TP; +LIDO700A15 TP; -NITR0.4T50 SL; +PRAM0.258 PO
[2020-12-02 10:44] VITALS: BP 118/51
== END | disposition home or self-care (01) ==
LOC: SRCNTR 10:22
PROVIDERS: ATTEND Internal Medicine Cardiovascular Disease
DX: E11.9 Type 2 diabetes mellitus without complications (principal); I10 Essential (primary) hypertension; E78.5 Hyperlipidemia, unspecified; I25.10 Atherosclerotic heart disease of native coronary artery without angina pectoris; M19.91 Primary osteoarthritis, unspecified site; J44.9 Chronic obstructive pulmonary disease, unspecified; G47.39 Other sleep apnea; Z95.1 Presence of aortocoronary bypass graft
CPT/HCPCS: G0463

== ENCOUNTER → 2021-02-03 | Outpatient (CLI) | payer MEDICARE, OTHER ==
[~2021-02-03] VITALS: Ht 144.8 cm; Wt 68.0 kg
[~2021-02-03] MED LIST changes: -ASPI-1111 PO; +ASPI-1444 PO
[2021-02-03 11:10] VITALS: BP 118/52
== END | disposition home or self-care (01) ==
LOC: SRCNTR 10:54
PROVIDERS: ATTEND Internal Medicine Cardiovascular Disease
DX: I25.10 Atherosclerotic heart disease of native coronary artery without angina pectoris (principal); E11.9 Type 2 diabetes mellitus without complications; I10 Essential (primary) hypertension; E78.5 Hyperlipidemia, unspecified; M19.90 Unspecified osteoarthritis, unspecified site; Z95.1 Presence of aortocoronary bypass graft; Z79.899 Other long term (current) drug therapy; Z79.82 Long term (current) use of aspirin
CPT/HCPCS: G0463; Z7500

== ENCOUNTER → 2021-03-31 | Outpatient (CLI) | payer MEDICARE, OTHER ==
[~2021-03-31] VITALS: Ht 144.8 cm; Wt 68.4 kg
[2021-03-31 10:29] VITALS: BP 129/55
== END | disposition home or self-care (01) ==
LOC: SRCNTR 10:01
PROVIDERS: ATTEND Internal Medicine Cardiovascular Disease
DX: I10 Essential (primary) hypertension (principal); E78.5 Hyperlipidemia, unspecified; M19.90 Unspecified osteoarthritis, unspecified site; E11.9 Type 2 diabetes mellitus without complications; J44.9 Chronic obstructive pulmonary disease, unspecified; I25.10 Atherosclerotic heart disease of native coronary artery without angina pectoris; G47.30 Sleep apnea, unspecified; Z95.1 Presence of aortocoronary bypass graft
CPT/HCPCS: G0463

== ENCOUNTER → 2021-08-11 | Outpatient (CLI) | payer MEDICARE, OTHER ==
[~2021-08-11] VITALS: Ht 144.8 cm; Wt 68.1 kg
[~2021-08-11] MED LIST changes: -BIMA12.5OS OU; +BIMA2.5D4 OU; +ISOS120T14 PO; +NITR0.4T52 SL
[2021-08-11 10:52] VITALS: BP 134/50
== END | disposition home or self-care (01) ==
LOC: SRCNTR 10:11
PROVIDERS: ATTEND Internal Medicine Cardiovascular Disease
DX: I10 Essential (primary) hypertension (principal); E11.9 Type 2 diabetes mellitus without complications; E78.5 Hyperlipidemia, unspecified; M19.90 Unspecified osteoarthritis, unspecified site; I25.10 Atherosclerotic heart disease of native coronary artery without angina pectoris; J44.9 Chronic obstructive pulmonary disease, unspecified; G47.00 Insomnia, unspecified; R41.81 Age-related cognitive decline; Z95.1 Presence of aortocoronary bypass graft
CPT/HCPCS: G0463

== ENCOUNTER → 2021-10-13 | Outpatient (CLI) | payer MEDICARE, OTHER ==
[~2021-10-13] VITALS: Ht 142.2 cm; Wt 68.0 kg
[~2021-10-13] MED LIST changes: +METF-1211 PO; -METF-960 PO
[2021-10-13 10:35] VITALS: BP 140/64
== END | disposition home or self-care (01) ==
LOC: SRCNTR 10:11
PROVIDERS: ATTEND Internal Medicine Cardiovascular Disease
DX: I10 Essential (primary) hypertension (principal); J44.9 Chronic obstructive pulmonary disease, unspecified; I25.10 Atherosclerotic heart disease of native coronary artery without angina pectoris; E11.9 Type 2 diabetes mellitus without complications; E78.5 Hyperlipidemia, unspecified; G47.30 Sleep apnea, unspecified; M19.90 Unspecified osteoarthritis, unspecified site; R41.81 Age-related cognitive decline; Z95.1 Presence of aortocoronary bypass graft
CPT/HCPCS: G0463

== ENCOUNTER → 2021-12-15 | Outpatient (CLI) | payer MEDICARE, OTHER ==
[~2021-12-15] VITALS: Ht 144.8 cm; Wt 68.0 kg
[~2021-12-15] MED LIST changes: +INFLUENZA VIRUS VACCINE QVS 2021-22 (6MO+)/PF 60 MCG/0.5 ML SYRINGE IM. ONE
[2021-12-15 10:51] VITALS: BP 105/48
== END | disposition home or self-care (01) ==
LOC: SRCNTR 09:51
PROVIDERS: ATTEND Internal Medicine Cardiovascular Disease
DX: Z23 Encounter for immunization (principal); I10 Essential (primary) hypertension; E11.9 Type 2 diabetes mellitus without complications; I25.10 Atherosclerotic heart disease of native coronary artery without angina pectoris; E78.5 Hyperlipidemia, unspecified; G47.30 Sleep apnea, unspecified; J44.9 Chronic obstructive pulmonary disease, unspecified; M19.91 Primary osteoarthritis, unspecified site; R41.81 Age-related cognitive decline
CPT/HCPCS: 90471; 90686; 93005; G0463

== ENCOUNTER → 2022-02-16 | Outpatient (CLI) | payer MEDICARE, OTHER ==
[~2022-02-16] VITALS: Ht 144.8 cm; Wt 67.0 kg
[~2022-02-16] MED LIST changes: -INFLUENZA VIRUS VACCINE QVS 2021-22 (6MO+)/PF 60 MCG/0.5 ML SYRINGE IM. ONE; +PLEC3TAB2 PO
[2022-02-16 09:53] VITALS: BP 118/44
== END | disposition home or self-care (01) ==
LOC: SRCNTR 09:42
PROVIDERS: ATTEND Internal Medicine Cardiovascular Disease
DX: I10 Essential (primary) hypertension (principal); E78.5 Hyperlipidemia, unspecified; J44.9 Chronic obstructive pulmonary disease, unspecified; M19.90 Unspecified osteoarthritis, unspecified site; E11.9 Type 2 diabetes mellitus without complications; I25.10 Atherosclerotic heart disease of native coronary artery without angina pectoris; I25.810 Atherosclerosis of coronary artery bypass graft(s) without angina pectoris; R41.81 Age-related cognitive decline
CPT/HCPCS: G0463

== ENCOUNTER → 2022-04-13 | Outpatient (CLI) | payer MEDICARE, OTHER ==
[~2022-04-13] VITALS: Ht 144.8 cm; Wt 69.0 kg
[2022-04-13 11:04] VITALS: BP 120/50
== END | disposition home or self-care (01) ==
LOC: SRCNTR 10:42
PROVIDERS: ATTEND Internal Medicine Cardiovascular Disease
DX: Z09 Encounter for follow-up examination after completed treatment for conditions other than malignant neoplasm (principal); I10 Essential (primary) hypertension; I25.10 Atherosclerotic heart disease of native coronary artery without angina pectoris; E11.9 Type 2 diabetes mellitus without complications; E78.5 Hyperlipidemia, unspecified; J44.9 Chronic obstructive pulmonary disease, unspecified; M19.90 Unspecified osteoarthritis, unspecified site; R41.81 Age-related cognitive decline; Z95.1 Presence of aortocoronary bypass graft
CPT/HCPCS: G0463; Z7500

== ENCOUNTER → 2022-06-15 | Outpatient (CLI) | payer MEDICARE, OTHER ==
[~2022-06-15] VITALS: Ht 142.2 cm; Wt 66.8 kg
[~2022-06-15] MED LIST changes: +NETA2.5D OU
[2022-06-15 10:48] VITALS: BP 136/70
== END | disposition home or self-care (01) ==
LOC: SRCNTR 10:18
PROVIDERS: ATTEND Internal Medicine Cardiovascular Disease
DX: I10 Essential (primary) hypertension (principal); Z09 Encounter for follow-up examination after completed treatment for conditions other than malignant neoplasm; E11.9 Type 2 diabetes mellitus without complications; E78.5 Hyperlipidemia, unspecified; J44.9 Chronic obstructive pulmonary disease, unspecified; M19.90 Unspecified osteoarthritis, unspecified site; I25.10 Atherosclerotic heart disease of native coronary artery without angina pectoris; R41.81 Age-related cognitive decline; Z95.1 Presence of aortocoronary bypass graft
CPT/HCPCS: G0463; Z7500

== ENCOUNTER → 2022-08-17 | Outpatient (CLI) | payer MEDICARE, OTHER ==
[~2022-08-17] MED LIST changes: +LOSA-382 PO; -PLEC3TAB2 PO
[2022-08-17 11:19] VITALS: BP 144/74
== END | disposition home or self-care (01) ==
LOC: SRCNTR 10:50
PROVIDERS: ATTEND Internal Medicine Cardiovascular Disease
DX: I10 Essential (primary) hypertension (principal); Z09 Encounter for follow-up examination after completed treatment for conditions other than malignant neoplasm; E11.9 Type 2 diabetes mellitus without complications; I25.10 Atherosclerotic heart disease of native coronary artery without angina pectoris; E78.5 Hyperlipidemia, unspecified; M19.90 Unspecified osteoarthritis, unspecified site; J44.9 Chronic obstructive pulmonary disease, unspecified; R41.81 Age-related cognitive decline; Z95.1 Presence of aortocoronary bypass graft; Z95.0 Presence of cardiac pacemaker
CPT/HCPCS: G0463; Z7500

== ENCOUNTER → 2023-01-25 | Outpatient (CLI) | payer MEDICARE, OTHER ==
[~2023-01-25] VITALS: Ht 144.8 cm; Wt 58.0 kg
[~2023-01-25] MED LIST changes: +AMLODIPINE PO
[2023-01-25 09:56] VITALS: BP 126/75
== END | disposition home or self-care (01) ==
LOC: SRCNTR 09:37
PROVIDERS: ATTEND Internal Medicine Cardiovascular Disease
DX: Z09 Encounter for follow-up examination after completed treatment for conditions other than malignant neoplasm (principal); I25.10 Atherosclerotic heart disease of native coronary artery without angina pectoris; I10 Essential (primary) hypertension; E11.9 Type 2 diabetes mellitus without complications; E78.5 Hyperlipidemia, unspecified; J44.9 Chronic obstructive pulmonary disease, unspecified; M19.90 Unspecified osteoarthritis, unspecified site; R41.81 Age-related cognitive decline; Z95.0 Presence of cardiac pacemaker; Z95.1 Presence of aortocoronary bypass graft
CPT/HCPCS: G0463; Z7500

== ENCOUNTER → 2023-09-27 | Outpatient (CLI) | payer MEDICARE, OTHER ==
[~2023-09-27] VITALS: Ht 147.3 cm; Wt 60.0 kg
[~2023-09-27] MED LIST changes: -AMLODIPINE PO; -BRIM15DR8 OU; +BRIM5DRO9 OU; -PRAM0.258 PO; +PRAM0.259 PO
[2023-09-27 10:13] VITALS: BP 153/78; PULSE 80; RESP 16; TEMP 98.3; O2SAT 97
== END | disposition home or self-care (01) ==
LOC: SRCNTR 09:48
PROVIDERS: ATTEND Internal Medicine Cardiovascular Disease
DX: Z09 Encounter for follow-up examination after completed treatment for conditions other than malignant neoplasm (principal); I25.10 Atherosclerotic heart disease of native coronary artery without angina pectoris; E11.9 Type 2 diabetes mellitus without complications; I10 Essential (primary) hypertension; E78.5 Hyperlipidemia, unspecified; J44.9 Chronic obstructive pulmonary disease, unspecified; M19.90 Unspecified osteoarthritis, unspecified site; R41.81 Age-related cognitive decline; Z95.0 Presence of cardiac pacemaker; Z95.1 Presence of aortocoronary bypass graft
CPT/HCPCS: 93005; G0463

== ENCOUNTER → 2023-12-04 | Outpatient (CLI) | payer MEDICARE, OTHER ==
[~2023-12-04] VITALS: Ht 144.8 cm; Wt 62.0 kg
[~2023-12-04] MED LIST changes: -AMLO-258 PO; +CHOL25TA4 PO; +CYAN500T56 PO; -GABA-1181 PO; -ISOS120T14 PO; -METF-1211 PO; +OMEG-126 PO; -PRAM0.259 PO
[2023-12-04 10:18] VITALS: BP 127/64; PULSE 78; RESP 16; TEMP 98.2; O2SAT 97
== END | disposition home or self-care (01) ==
LOC: SRCNTR 10:14
PROVIDERS: ATTEND Internal Medicine Cardiovascular Disease
DX: Z09 Encounter for follow-up examination after completed treatment for conditions other than malignant neoplasm (principal); I25.10 Atherosclerotic heart disease of native coronary artery without angina pectoris; I10 Essential (primary) hypertension; E11.9 Type 2 diabetes mellitus without complications; E78.5 Hyperlipidemia, unspecified; J44.9 Chronic obstructive pulmonary disease, unspecified; M19.90 Unspecified osteoarthritis, unspecified site; R41.81 Age-related cognitive decline; Z95.0 Presence of cardiac pacemaker; Z95.1 Presence of aortocoronary bypass graft
CPT/HCPCS: G0463; Z7500

== ENCOUNTER → 2024-02-05 | Outpatient (CLI) | payer MEDICARE, OTHER ==
[~2024-02-05] VITALS: Ht 144.8 cm; Wt 63.0 kg
[~2024-02-05] MED LIST changes: -DORZ1DRO7 OU
[2024-02-05 10:36] VITALS: BP 144/72; PULSE 75; RESP 16; TEMP 98.5; O2SAT 97
== END | disposition home or self-care (01) ==
LOC: SRCNTR 10:16
PROVIDERS: ATTEND Internal Medicine Cardiovascular Disease
DX: R94.31 Abnormal electrocardiogram [ECG] [EKG] (principal); Z09 Encounter for follow-up examination after completed treatment for conditions other than malignant neoplasm; E11.9 Type 2 diabetes mellitus without complications; I10 Essential (primary) hypertension; E78.5 Hyperlipidemia, unspecified; J44.9 Chronic obstructive pulmonary disease, unspecified; R41.81 Age-related cognitive decline; I25.10 Atherosclerotic heart disease of native coronary artery without angina pectoris; Z95.0 Presence of cardiac pacemaker; Z95.1 Presence of aortocoronary bypass graft
CPT/HCPCS: 93005; G0463

== ENCOUNTER → 2024-04-29 | Outpatient (CLI) | payer MEDICARE, OTHER ==
[~2024-04-29] VITALS: Ht 144.8 cm; Wt 63.0 kg
[~2024-04-29] MED LIST changes: +MAGN400T7 PO
[2024-04-29 10:37] VITALS: BP 120/59; PULSE 64; RESP 16; TEMP 98.2; O2SAT 97
== END | disposition home or self-care (01) ==
LOC: SRCNTR 10:14
PROVIDERS: ATTEND Internal Medicine Cardiovascular Disease
DX: I10 Essential (primary) hypertension (principal); I25.10 Atherosclerotic heart disease of native coronary artery without angina pectoris; M19.90 Unspecified osteoarthritis, unspecified site; E78.5 Hyperlipidemia, unspecified; E11.9 Type 2 diabetes mellitus without complications; Z95.0 Presence of cardiac pacemaker; Z79.899 Other long term (current) drug therapy
CPT/HCPCS: G0463; Z7500

== ENCOUNTER → 2025-06-23 | Outpatient (CLI) | payer MEDICARE, OTHER ==
[~2025-06-23] VITALS: Ht 144.8 cm; Wt 65.5 kg
[~2025-06-23] MED LIST changes: +DONE-52 PO; +LIDO-57 TP; -LIDO700A15 TP; -OMEG-126 PO
[2025-06-23 10:58] VITALS: BP 139/74; PULSE 79; RESP 17; TEMP 98.2; O2SAT 98
== END | disposition home or self-care (01) ==
LOC: SRCNTR 10:54
PROVIDERS: ATTEND Internal Medicine Cardiovascular Disease
DX: I25.10 Atherosclerotic heart disease of native coronary artery without angina pectoris (principal); Z09 Encounter for follow-up examination after completed treatment for conditions other than malignant neoplasm; I10 Essential (primary) hypertension; E11.9 Type 2 diabetes mellitus without complications; E78.5 Hyperlipidemia, unspecified; J44.9 Chronic obstructive pulmonary disease, unspecified; F03.90 Unspecified dementia, unspecified severity, without behavioral disturbance, psychotic disturbance, mood disturbance, and anxiety; R41.81 Age-related cognitive decline; Z79.82 Long term (current) use of aspirin; Z79.899 Other long term (current) drug therapy; Z95.0 Presence of cardiac pacemaker; Z95.1 Presence of aortocoronary bypass graft
CPT/HCPCS: G0463; Z7500